=== PATIENT | female | born 1995 | race Two or more races ===

== ENCOUNTER 2019-04-09 20:14 | Emergency (ER) | payer OTHER ==
--- NOTE | 2019-04-09 22:07 | ER Document Report ---
ED Medical Screen (RME) - General Chief Complaint: Breathing Difficulty Stated Complaint: TROUBLE BREATHING Time Seen by Provider: 04/09/19 22:06 Notes: 23-year-old female with history of childhood asthma presents with difficulty breathing for the past 2 months. Patient states she has associated chest tightness when she takes a deep breath in. Patient has increased work of breathing on exam. Mildly tachypneic. Lungs clear to auscultation bilaterally. Patient denies any long distance travel, recent hospitalization, recent surgeries, control use. Patient just had a baby 7 months ago. I have greeted and performed a rapid initial assessment of this patient. A comprehensive ED assessment and evaluation of the patient, analysis of test results and completion of the medical decision making process with be conducted by additional ED providers. Physical Exam - Vital signs Vitals: Temp Pulse Resp BP Pulse Ox 98.0 F 82 24 H 106/72 100 04/09/19 20:42 04/09/19 20:42 04/09/19 20:42 04/09/19 20:42 04/09/19 20:42 Course - Vital Signs Vital signs: Temp Pulse Resp BP Pulse Ox 98.0 F 82 24 H 106/72 100 04/09/19 20:42 04/09/19 20:42 04/09/19 20:42 04/09/19 20:42 04/09/19 20:42
--- NOTE | 2019-04-09 23:24 | RADIOLOGY REPORT (SQ) ---
EXAM DESCRIPTION: Two views of the chest, x-ray CLINICAL HISTORY: 23 years Female, dyspnea COMPARISON: None. FINDINGS: Lungs: Lungs are clear. No pneumonia or edema. No pneumothorax or pleural effusion. Mediastinum: Cardiac and mediastinal silhouette are normal. Bones: Minimal curvature of the thoracic and lumbar spine. Upper abdomen is unremarkable IMPRESSION: Unremarkable radiographs of the chest
[2019-04-09 23:31] LABS: ABSOLUTE EOSINOPHILS # (AUTO) 0.1 10^3/uL (0.0-0.6); ABSOLUTE LYMPHOCYTES (AUTO) 3.3 10^3/uL (0.5-4.7); ABSOLUTE MONOCYTES (AUTO) 0.6 10^3/uL (0.1-1.4); BASOPHILS % (AUTO) 0.4 % (0-2); EOSINOPHILS % (AUTO) 0.7 % (0-6); HEMATOCRIT 35.5 % (36.0-47.0); HEMOGLOBIN 11.9 g/dL (12.0-15.5); LYMPHOCYTES % (AUTO) 41.5 % (13-45); MEAN CORPUSCULAR HEMOGLOBIN 27.3 pg (27.0-33.4); MEAN CORPUSCULAR HGB CONC 33.4 g/dL (32.0-36.0); MEAN CORPUSCULAR VOLUME 82 fl (80-97); MONOCYTES % (AUTO) 6.9 % (3-13); PLATELET COUNT 380 10^3/uL (150-450); RED BLOOD COUNT 4.34 10^6/uL (3.72-5.28); RED CELL DISTRIBUTION WIDTH 15.5 % (11.5-14.0); SEGMENTED NEUTROPHILS % (AUTO) 50.5 % (42-78); TOTAL CELLS COUNTED % (AUTO) 100 %; WHITE BLOOD COUNT 7.9 10^3/uL (4.0-10.5)
--- NOTE | 2019-04-10 01:31 | ER Document Report ---
ED General - General Chief Complaint: Shortness Of Breath Stated Complaint: TROUBLE BREATHING Time Seen by Provider: 04/09/19 22:06 Notes: Patient is a 23-year-old female that comes emergency department for chief complaint of having frequent episodes where she feels like it is hard to breathe and she feels discomfort and tightness on the right side of her chest. She states this is been going on for weeks now. She denies trauma, dizziness, fever/chills, nausea/vomiting, cough, or wheezing. She denies congestion. She states nothing in particular seems to make this worse or improved. She denies smoking, recent travel or surgery, lower extremity swelling, family or personal history of blood clots. She denies IV drug abuse or any daily medications. She denies control use. She denies any diagnosed medical history or daily med ications. She states that she had childhood asthma but not currently and states she has no wheezing when the episodes occur. She states she currently has no symptoms. TRAVEL OUTSIDE OF THE [place] IN LAST 30 DAYS: No Past Medical History - General Information source: Patient - Social History Smoking Status: Never Smoker Frequency of alcohol use: None Drug Abuse: None Lives with: Family Family History: Reviewed & Not Pertinent Patient has suicidal ideation: No Patient has homicidal ideation: No - Medical History Medical History: Negative Surgical Hx: Negative - Immunizations Immunizations up to date: Yes Hx Diphtheria, Pertussis, Tetanus Vaccination: Yes Review of Systems - Review of Systems Constitutional: No symptoms reported EENT: No symptoms reported Cardiovascular: See HPI Respiratory: See HPI Gastrointestinal: No symptoms reported Genitourinary: No symptoms reported Female Genitourinary: No symptoms reported Musculoskeletal: No symptoms reported Skin: No symptoms reported Hematologic/Lymphatic: No symptoms reported Neurological/Psychological: No symptoms reported Physical Exam - Vital signs Vitals: Temp Pulse Resp BP Pulse Ox 98.0 F 82 24 H 106/72 100 04/09/19 20:42 04/09/19 20:42 04/09/19 20:42 04/09/19 20:42 04/09/19 20:42 - Notes Notes: GENERAL: Alert, interacts well. No acute distress. HEAD: Normocephalic, atraumatic. EYES: Pupils equal, round, and reactive to light. Extraocular movements intact. ENT: Oral mucosa moist, tongue midline. Oropharynx unremarkable. Airway patent. Nares patent, no nasal septal hematoma, TM's intact. NECK: Full range of motion. Supple. Trachea midline. LUNGS: Clear to auscultation bilaterally, no wheezes, rales, or rhonchi. No respiratory distress. HEART: Regular rate and rhythm. No murmur ABDOMEN: Soft, non-tender. Non-distended. EXTREMITIES: Moves all 4 extremities spontaneously. No edema, normal radial and dorsalis pedis pulses bilaterally. No cyanosis. BACK: no cervical, thoracic, lumbar midline tenderness. No saddle anesthesia, normal distal neurovascular exam. Moves all extremities in full range of motion. NEUROLOGICAL: Alert and oriented x3. Normal speech. Cranial nerves II through XII grossly intact. PSYCH: Normal affect, normal mood. SKIN: Warm, dry, normal turgor. No rashes or lesions noted. Course - Re-evaluation Re-evalutation: Patient has what is described as pleuritic pain on the right side that has been going on for a while. She has no current symptoms. No tachycardia, hypoxia, or signs of distress. Clear lungs on auscultation. No concerning past medical history reported. No risk factors reported. Negative troponin, negative , CBC unremarkable, chest x-ray and EKG unremarkable. Discussed with patient. We also did discuss potential and risk factors for blood clot, I reassured her, she request to be tested for this, we perform d-dimer and this was negative. Patient is reassured by this. Discussed treatment options, she was treated with dexamethasone for potential pleurisy. Very low suspicion of acute intrathoracic etiology by her evaluation, work-up, symptoms. Discussed follow-up and return precautions. Patient states understanding and agreement. Stable at time of discharge. - Vital Signs Vital signs: Temp Pulse Resp BP Pulse Ox 98.2 F 84 16 105/64 100 04/10/19 02:49 04/10/19 02:49 04/10/19 02:49 04/10/19 02:49 04/10/19 02:49 - Laboratory Result Diagrams: 04/09/19 23:09 Laboratory results interpreted by me: 04/09/19 23:09 Hgb 11.9 L Hct 35.5 L RDW 15.5 H - EKG Interpretation by Me Additional EKG results interpreted by me: EKG shows sinus rhythm at a rate of 78, normal axis, no T wave inversions or ST segment changes in consecutive leads, machine reads as normal Discharge - Discharge Clinical Impression: Pleuritic chest pain, Shortness of breath Condition: Stable Disposition: HOME, SELF-CARE Additional Instructions: Your work-up including testing of your heart, lungs, and laboratory evaluation do not show any concerning findings. Based on your symptoms I suspect you have pleurisy, you have been treated for this. Follow-up with primary care for additional management. Symptoms should simply resolve with time. Return if you worsen including severe worsening pain, passing out, fever, vomiting, or any other concerning symptoms.
[2019-04-10] MEDS ORDERED: DEXAMETHASONE SOD PHOS INJ 10 MG/1 ML VIAL IM ONE (02:32)
[2019-04-10 02:50] VITALS: BP 105/64
--- NOTE | 2019-04-10 07:13 | EKG REPORT ---
SEVERITY:- NORMAL ECG - SINUS RHYTHM : Confirmed by: Dionicio Freeman MD 10-Apr-2019 07:12:59
== END 2019-04-10 03:15 | disposition home or self-care (01) ==
LOC: ER 20:14
DX: R07.81 Pleurodynia (principal); R06.02 Shortness of breath
CPT/HCPCS: 93005; 99284; 96372; 36415; 84703; 85025; 84484; 85379; 71046; 93010; J1100